=== PATIENT | male | born 1995 | race Caucasian/White ===

== ENCOUNTER 2025-03-05 05:49 | Emergency (ER) | payer BC, SELFPAY ==
[2025-03-05 05:50] VITALS: BP 135/78
[2025-03-05 06:02] VITALS: BMI 22.2
--- NOTE | 2025-03-05 06:18 | ED.GENMED ---
History of Present Illness
<Riaz Hodges PA-C - Last Filed: 03/05/25 08:56>
General
Chief Complaint: Throat Problem
Time Seen by Provider: 03/05/25 06:08
History of Present Illness
History of Present Illness:
30 yo male presents to the Emergency Department for evaluation of sore throat, tactile fever and odynophagia x 2 days. Exposed to strep throat over the weekend. No choking or dyspnea.
Past History
<Riaz Hodges PA-C - Last Filed: 03/05/25 08:56>
Past History
ED Past Medical History: Other (Seizures)
ED Past Surgical History: None
Social History
Tobacco: Smoker
Alcohol: None
Drug: None
Personal: Single
Living: with roommate
Employment: Employed
Review of Systems
<Riaz Hodges PA-C - Last Filed: 03/05/25 08:56>
Review of Systems
Allergies reviewed?: Yes
All Other Systems: ROS reviewed and negative except as documented in HPI and ROS
Phy Exam
<Riaz Hodges PA-C - Last Filed: 03/05/25 08:56>
Physical Exam
Physical Exam:
GEN: Well appearing, NAD, WDWN
HEENT: Oral mucosa moist, no scleral icterus. Marked soft palatal erythema with uvula edema, slight uvular deviation to the left, prominence of the R soft palate tissue, no obvious tonsillar hypertrophy, mildly muffled phonation. + R cervical
adenopathy
Cardiac: Regular rate and rhythm
Lung: No respiratory distress, no tachypnea, lungs CTAB
MSK: No gross deformity or injuries
Skin: Good color, no pallor or jaundice, no rashes
Neuro: AO x3, moves all extremities freely
Psych: Calm, cooperative
Sepsis
<PRAVIN Rojas Last Filed: 03/05/25 08:56>
Sepsis Screening
Sepsis Assessment: Sepsis Ruled Out
Sepsis Screen
Sepsis Screen: Sepsis Ruled Out
Date: 03/05/25
Time: 08:56
Course
<Riaz Hodges PA-C - Last Filed: 03/05/25 08:56>
Orders/Labs/Results
Orders:
Orders
03/05/25 05:56
Rapid Strep Group A Urgent
ITZ Source: Throat/Pharynx
Specimen Description:
Date Specimen was Collected: 03/05/25
Time Specimen was Collected: 05:56
03/05/25 06:13
CT Neck With Iv Contrast Urgent
Comment:
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
Dexamethasone Sod Phosphate [Decadron] 10 mg IV NOW STA
Ketorolac [Toradol] 15 mg IV NOW STA
03/05/25 06:42
Complete Blood Count/No Diff Urgent
Comprehensive Metabolic Panel Urgent
Abnormal Lab Results
03/05/25
06:42
WBC 14.1 H 10^3/uL
(4.8-10.8)
RBC 4.59 L 10^6/uL
(4.70-6.10)
Hct 38.6 L %
(39.0-52.0)
Glucose 110 H mg/dl
(70-99)
Total Bilirubin 1.7 H mg/dl
(0.2-1.3)
03/05/25 06:42
03/05/25 06:42
Vital Signs
Initial and Last Documented VS:
Initial Vital Signs
Temp Pulse Resp BP Pulse Ox
99 F 84 20 135/78 97
03/05/25 05:50 03/05/25 05:50 03/05/25 05:50 03/05/25 05:50 03/05/25 05:50
Last Documented Vital Signs
Temp Pulse Resp BP Pulse Ox
99 F 84 20 127/81 97
03/05/25 05:50 03/05/25 05:50 03/05/25 05:50 03/05/25 07:00 03/05/25 08:00
<Dante Vergara, DO - Last Filed: 03/05/25 06:46>
Orders/Labs/Results
Orders:
Orders
03/05/25 05:56
Rapid Strep Group A Urgent
ITZ Source: Throat/Pharynx
Specimen Description:
Date Specimen was Collected: 03/05/25
Time Specimen was Collected: 05:56
03/05/25 06:13
CT Neck With Iv Contrast Urgent
Comment:
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
Dexamethasone Sod Phosphate [Decadron] 10 mg IV NOW STA
Ketorolac [Toradol] 15 mg IV NOW STA
03/05/25 06:42
Complete Blood Count/No Diff Urgent
Comprehensive Metabolic Panel Urgent
Abnormal Lab Results
03/05/25
06:42
WBC 14.1 H 10^3/uL
(4.8-10.8)
RBC 4.59 L 10^6/uL
(4.70-6.10)
Hct 38.6 L %
(39.0-52.0)
Glucose 110 H mg/dl
(70-99)
Total Bilirubin 1.7 H mg/dl
(0.2-1.3)
03/05/25 06:42
03/05/25 06:42
Vital Signs
Initial and Last Documented VS:
Initial Vital Signs
Temp Pulse Resp BP Pulse Ox
99 F 84 20 135/78 97
03/05/25 05:50 03/05/25 05:50 03/05/25 05:50 03/05/25 05:50 03/05/25 05:50
Last Documented Vital Signs
Temp Pulse Resp BP Pulse Ox
99 F 84 20 127/81 97
03/05/25 05:50 03/05/25 05:50 03/05/25 05:50 03/05/25 07:00 03/05/25 08:00
<Riaz Hodges PA-C - Last Filed: 03/05/25 08:56>
MDM/Problems Addressed
MDM/Problems Addressed:
Imaging was obtained due to asymmetry of the soft palatal tissues concerning for early peritonsillar abscess. This revealed no drainable fluid collection, given the patient's penicillin allergy he will be started on clindamycin and steroids, strict
ED return parameters discussed
<Riaz Hodges PA-C - Last Filed: 03/05/25 08:56>
*Critical Care Note
Total Time (30-74mins, 75-104mins- exclusive of procedures): Not Applicable
ED Attending Note
<Riaz Hodges PA-C - Last Filed: 03/05/25 08:56>
-
Portions of this chart may have been created with voice recognition software.� Occasional wrong word or��sound alike� substitutions may have occurred due to the inherent limitations of voice recognition software.
<Dante Vergara DO - Last Filed: 03/05/25 06:46>
ED Attending Note
Patient seen and examined by attending physician: Yes
I performed the substantive portion of visit, reviewed & personally made and approve the management plan that is documented in note by myself or JORDEN.: Yes
ED Attending Note:
Seen with PA examined independently agree with assessment and plan 30-year-old male sore throat right ear pain slight uvular swelling or deviation labs CAT scan
Discharge Plan
Departure
Patient Disposition: Home (Routine Discharge)
Date of Disposition: 03/05/25
Time of Disposition: 08:04
Patient with high blood pressure during this ER visit?: No
Discharge Problem:
Peritonsillar cellulitis
Instructions: Peritonsillar Abscess, Adult (DC)
Prescriptions:
New
clindamycin HCl 300 mg capsule
300 mg PO Q6H 10 Days Qty: 40 0RF
prednisone 20 mg tablet
40 mg PO DAILY 7 Days Qty: 14 0RF
Referrals:
NONE,* [Family Provider] -
Stand Alone Forms: Return to Work
Activity Restrictions/Additional Instructions:
Return if symptoms worsen in 2-3 days
Interventions
Interventions:
*Risk Screen - Suicide Last Done: 03/05/25 05:50
*General Assessment Last Done: 03/05/25 06:07
*Neglect/Abuse Screening Last Done: 03/05/25 05:50
*ED- Fall Risk Assessment Last Done: 03/05/25 06:07
*ED COVID-19 Vaccine History Last Done: 03/05/25 06:07
*Nursing Disposition Last Done: 03/05/25 08:21
ED-EENT Assessment Last Done: 03/05/25 07:09
ED- Pulmonary Assessment Last Done: 03/05/25 07:09
Discharge Date and Time
Discharge Date/Time: 03/05/25 08:22
Print Language: MALTESE
[2025-03-05] MEDS: DECADRON 10 MG IV (06:35)
[2025-03-05] MEDS: TORADOL 15 MG IV (06:35)
[2025-03-05 06:47] VITALS: BP 127/71
[2025-03-05 06:54] LABS: Hematocrit 38.6 % (39.0-52.0); Hemoglobin 13.8 g/dL (13.0-18.0); Mean Corp Hgb Conc. 35.8 g/dL (33.0-37.0); Mean Corpuscular Hgb 30.1 pg (27.0-31.0); Mean Corpuscular Volume 84.1 fL (80.0-94.0); Mean Platelet Volume 9.8 fL (7.4-10.4); Platelet Count 186 10^3/uL (130-400); Red Blood Cell Count 4.59 10^6/uL (4.70-6.10); Red Cell Dist. Width 12.9 % (11.5-14.5); White Blood Cell Count 14.1 10^3/uL (4.8-10.8)
[2025-03-05 07:00] VITALS: BP 127/81
[2025-03-05 07:08] LABS: ALT (SGPT) 34 U/L (0-50); AST (SGOT) 33 U/L (17-59); Albumin 4.5 g/dl (3.5-5.0); Alkaline Phosphatase 54 U/L (38-126); Blood Urea Nitrogen 13 mg/dl (9-20); Calcium 9.6 mg/dl (8.4-10.2); Carbon Dioxide 26 mmol/L (22-30); Chloride 103 mmol/L (98-107); Estimated Creatinine Clearance > 125 ml/min; Glucose 110 mg/dl (70-99); Potassium 4.1 mmol/L (3.5-5.1); Sodium 139 mmol/L (135-145); Total Bilirubin 1.7 mg/dl (0.2-1.3); eGFR > 60.00
== END 2025-03-05 08:22 | disposition home or self-care (01) ==
LOC: EMR 05:49
PROVIDERS: Physician Assistant; EMERGENCY PHYSICIAN Emergency Medicine
DX: J36 Peritonsillar abscess (principal); F17.200 Nicotine dependence, unspecified, uncomplicated
CPT/HCPCS: 99285; 96374; 96375; 70491; 80053; 85027; 87070; 87147; 87880; Q9967